=== PATIENT | female | born 1985 ===

== ENCOUNTER 2018-06-28 07:31 | Emergency (ER) | payer OTHER ==
--- NOTE | 2018-06-28 07:48 | ED ---
Complex/Multi-Sys Presentation - HPI Summary HPI Summary: A 33 y/o F, with pert PMHx: spondylosis, presents to ED with c/o dizziness onset 0000 this date. Associated sx: v/d 3x, stabbing abd pain N/V/D, tingling in extremities, joint pain worse at hips, dyspnea. Denies fever, melena, urinary sx. Pt takes Enbrel 50mg, she did not take it this AM. She hasn't been around anyone ill or eaten anything unusual. She hasn't taken any ABX recently. Approx 3 weeks ago she had L ankle swelling but that resolved with Prednisone. [facility]: uses IUD. PMHx: hypoglycemia. Denies PMHx: DVT. - History Of Current Complaint Chief Complaint: EDGeneral Time Seen by Provider: 06/28/18 07:45 Hx Obtained From: Patient, Family/Kier Pleater Onset/Duration: Sudden Onset, Lasting Hours, Still Present Timing: Constant Severity Currently: Moderate Severity Initially: Moderate Associated Signs And Symptoms: Positive: Dizziness, Vomiting, Diarrhea, Abdominal Pain, Other - pos: tingling in extremities; joint pain; dyspnea.. Negative: Dysuria, Melena, Fever - Allergies/Home Medications Allergies/Adverse Reactions: Allergies Allergy/AdvReac Type Severity Reaction Status Date / Time No Known Allergies Allergy Verified 06/28/18 07:37 PMH/Surg Hx/FS Hx/Imm Hx Previously Healthy: No - hypoglycemia Cardiovascular History: Denies: Hx Deep Vein Thrombosis Musculoskeletal History: Reports: Other Musculoskeletal History - spondylosis Infectious Disease History: No Infectious Disease History: Denies: Traveled Outside the [place] in Last 30 Days - Family History Known Family History: Negative: Cardiac Disease - Social History Occupation: Employed Full-time Lives: With Family Alcohol Use: None Hx Substance Use: No Substance Use Type: Reports: None Hx Tobacco Use: No Smoking Status (MU): Never Smoked Tobacco Have You Smoked in the Last Year: No Review of Systems Negative: Fever Positive: Other - pos: dyspnea Positive: Abdominal Pain, Vomiting, Diarrhea, Nausea. Negative: Other - neg: melena Negative: dysuria, hematuria Musculoskeletal: Other - pos: tingling in extremities Positive: Arthralgia All Other Systems Reviewed And Are Negative: Yes Physical Exam - Summary Physical Exam Summary: GENERAL: Patient is a well-developed and nourished F who is lying comfortable in the stretcher. Patient is not in any acute respiratory distress. HEAD AND FACE: Normocephalic EYES: PERRLA, EOMI x 2. EARS: Hearing grossly intact. MOUTH: Oropharynx within normal limits. NECK: Supple, trachea is midline, no adenopathy, no JVD, no carotid bruit. CHEST: Symmetric, no tenderness at palpation LUNGS: Clear to auscultation bilaterally. No wheezing or crackles. CVS: Regular rate and rhythm, S1 and S2 present, no murmurs or gallops appreciated. ABDOMEN: Soft, non-tender. Bowel sounds are normal. No abdominal abnormal pulsations. EXTREMITIES: Full ROM in all major joints, no edema, no cyanosis or clubbing. NEURO: Alert and oriented x 3. No acute neurological deficits. Speech is normal and follows commands. SKIN: Dry and warm Triage Information Reviewed: Yes Vital Signs On Initial Exam: Initial Vitals Temp Pulse Resp BP Pulse Ox 98.5 F 92 16 107/82 100 06/28/18 07:33 06/28/18 07:33 06/28/18 07:33 06/28/18 07:33 06/28/18 07:33 Vital Signs Reviewed: Yes Diagnostics - Vital Signs Vital Signs Temp Pulse Resp BP Pulse Ox 06/28/18 07:33 98.5 F 92 16 107/82 100 - Laboratory Result Diagrams: 06/28/18 08:02 06/28/18 08:02 Lab Statement: Any lab studies that have been ordered have been reviewed, and results considered in the medical decision making process. - Radiology CXR Xray Interpretation: Positive (See Comments) - IMPRESSION: QUESTIONABLE PATCHY INFILTRATE AT THE RIGHT LOWER LUNG SEEN ON THE AP VIEW. PLEASE CORRELATE TO CLINICAL SIGNS OR SYMPTOMS OF PNEUMONIA. ED provider has reviewed this report. Radiology Interpretation Completed By: Radiologist - CT A/P CT CT Interpretation: Positive (See Comments) - IMPRESSION: 1. There are no renal calculi or signs of hydronephrosis. 2. There is no acute inflammatory change of the gastrointestinal tract within the limitations of a noncontrast CT examination. The appendix appears to be normal. 3. The intrauterine device appears to be appropriately position. ED provider has reviewed this report. CT Interpretation Completed By: Radiologist - EKG 0820 Cardiac Rate: NL - 90bpm EKG Rhythm: Sinus Rhythm EKG Interpretation: Inverted Twaves in inferior leads. EKG Comparison: Other - No EKG available for comparison. Re-Evaluation - Re-Evaluation 1 Re-Evaluation Time: 09:31 Change: Improved Comment: Upon reeval, pt is feeling better. Dizziness and tingling in extremities have resolved. She is still having back pain. Will give Toradol and order CT to r/o kidney stone. Discussed results thus far, and the hematuria found in UA. Second Eval Re-Evaluation Time: 12:04 Change: Improved Comment: Explained Dispo to pt. The pt displayed understanding. Will send her home with Toradol and Zithromyocin. Complex Multi-Symp Course/Dx Course Of Treatment: A 33 y/o F, with pert PMHx: spondylosis, presents to ED with c/o dizziness onset 0000 this date. Workup is remarkable for hematuria from UA and patchy infiltrate in R lower lung, possible PNA on CXR. CT is unremarkable. I discussed results with patient and reports feeling better. She is hemodynamically stable upon discharge. Strict return precautions given and she will otherwise follow up with her PCP. - Diagnoses Provider Diagnoses: PNA (pneumonia) Discharge - Sign-Out/Discharge Documenting (check all that apply): Patient Departure - DC - Discharge Plan Condition: Stable Disposition: HOME Prescriptions: Azithromycin TAB* [Zithromax TAB (Z-JUAN) 250 mg #6 tabs] 2 tab PO .TODAY, THEN 1 DAILY #1 juan Ketorolac TAB * [Toradol TAB *] 10 mg PO Q8H PRN #15 tab PRN Reason: Pain Patient Education Materials: Azithromycin (By mouth), Pneumonia (ED) Referrals: No Primary Care Phys,NOPCP [Primary Care Provider] - [facility] [Outside] Additional Instructions: Please return to the ED if you experience new or worsening symptoms. - Billing Disposition and Condition Condition: STABLE Disposition: Home - Attestation Statements Document Initiated by Scribe: Yes Documenting Scribe: Jared Kaplan Provider For Whom Scribe is Documenting (Include Credential): Dr. Luis F Hernandez MD Scribe Attestation: Jared Groves, scribed for Dr. Luis F Hernandez MD on 06/28/18 at 1800. Scribe Documentation Reviewed: Yes Provider Attestation: The documentation as recorded by the Jared trejo accurately reflects the service I personally performed and the decisions made by me, Dr. Luis F Hernandez MD
[2018-06-28] MEDS ORDERED: NS 0.9% 1000 ML* 1,000 ML IV ONE (07:59)
[2018-06-28] MEDS ORDERED: Metoclopramide IV* 5 MG/ML 2 ML VIAL IV ONE (07:59)
[2018-06-28 08:20] LABS: ABS Basophils 0 10^3/ul (0-0.2); ABS Eosinophils 0.1 10^3/ul (0-0.6); ABS Lymphocytes 0.2 10^3/ul (1.0-4.8); ABS Monocytes 0.4 10^3/ul (0-0.8); ABS Neutrophils 10.6 10^3/ul (1.5-7.7); ABS Nucleated RBC 0 10^3/ul; Eosinophil % 0.8 % (0-6); Hematocrit 40 % (35-47); Lymphocyte % 2.2 % (25-47); Mean Corpuscular HGB Conc 35 g/dl (31-36); Mean Corpuscular Hemoglobin 30 pg (27-31); Mean Corpuscular Volume 85 fL (80-97); Mean Platelet Volume 6.9 um3 (7.4-10.4); Nucleated Red Blood Cells % 0.2; Platelet Count 233 10^3/ul (150-450); Red Blood Count 4.72 10^6/ul (4.00-5.40); Red Cell Distribution Width 13 % (10.5-15); White Blood Count 11.4 10^3/ul (3.5-10.8)
[2018-06-28 08:31] LABS: EGFR Non-African American 93.7 (>60)
[2018-06-28 08:59] LABS: Urine Appearance Clear; Urine Blood 1+ (Negative); Urine Color Yellow; Urine Ketones Negative (Negative); Urine Protein 1+(30 mg/dL) (Negative); Urine Red Blood Cell 2+(6-10/hpf) (Absent); Urine Specific Gravity 1.019 (1.010-1.030); Urine Urobilinogen Negative (Negative); Urine White Blood Cell Trace(0-5/hpf) (Absent)
[2018-06-28] MEDS ORDERED: Magnesium Sulfate 2 GM IV* 2 GM/50 ML BAG IVPB ONE (09:06)
--- NOTE | 2018-06-28 09:13 | RAD ---
INDICATION: Shortness of breath. COMPARISON: None TECHNIQUE: PA and lateral views of the chest were obtained. FINDINGS: The heart and mediastinum are normal in size and contour. The right lower lobe there is questionable patchy infiltrate not seen on the contralateral side. This density is not well localized on the lateral view chest x-ray. Elsewhere the lungs are adequately aerated. There is no evidence of large pleural effusion. Visualized bones are normal for the patient's age. There is no radiographic evidence of free air beneath the diaphragm IMPRESSION: QUESTIONABLE PATCHY INFILTRATE AT THE RIGHT LOWER LUNG SEEN ON THE AP VIEW. PLEASE CORRELATE TO CLINICAL SIGNS OR SYMPTOMS OF PNEUMONIA.
[2018-06-28] MEDS ORDERED: Ketorolac INJ* 30 MG/ML 1 ML VIAL IV PUSH ONE (09:30)
[2018-06-28] MEDS ORDERED: Magnesium Sulfate IV* 2 GM in NS 0.9% 100 ML* 100 ML IVPB ONE (10:00)
--- NOTE | 2018-06-28 10:12 | RAD ---
CLINICAL HISTORY: Nausea, vomiting and flank pain COMPARISON: None TECHNIQUE: Noncontrast CT examination of the abdomen and pelvis from the lung bases through the initial tuberosities. FINDINGS: VISUALIZED LUNG BASES: The visualized lung bases are grossly clear. There is no pleural effusion. ABDOMEN AND PELVIS: Evaluation of the solid organs and vasculature is limited without intravenous contrast. The liver, spleen, pancreas and adrenal glands are grossly normal in appearance. The gallbladder is normal. The kidneys are normal in appearance without focal mass, calcification or signs of hydronephrosis. Evaluation of the gastrointestinal tract is limited without oral contrast. The small and large bowel are not distended.The partially gas-filled appendix is normal in diameter measuring just under 7 mm. There is no definite periappendiceal inflammatory change. There is no gross retroperitoneal or mesenteric lymphadenopathy. The intrauterine device appears to be appropriately positioned at the uterine fundus. The abdominal aorta and iliac arteries are normal in course and diameter. There are no sinister bone lesions. IMPRESSION: 1. There are no renal calculi or signs of hydronephrosis. 2. There is no acute inflammatory change of the gastrointestinal tract within the limitations of a noncontrast CT examination. The appendix appears to be normal. 3. The intrauterine device appears to be appropriately position.
[2018-06-28 12:04] VITALS: BP 116/74
== END 2018-06-28 12:14 | disposition home or self-care (01) ==
LOC: ED 07:31
DX: J18.9 Pneumonia, unspecified organism (principal); R11.2 Nausea with vomiting, unspecified; R10.9 Unspecified abdominal pain; M47.9 Spondylosis, unspecified; Z97.5 Presence of (intrauterine) contraceptive device
CPT/HCPCS: 36415; 71046; 74176; 80053; 81003; 81015; 83735; 84484; 84702; 85025; 85379; 85652; 86141; 87086; 93005; 96361; 96365; 96375; 99283; J1885; J2765; J3475